=== PATIENT | female | born 1990 | race African-American/Black ===

== ENCOUNTER 2016-08-11 13:33 | Emergency (ER) | payer SELFPAY ==
[2016-08-11] MEDS ORDERED: Albuterol Sulfate 2.5 mg/3 ml Neb ONE ×2 (14:17→15:17)
[2016-08-11] MEDS ORDERED: Ipratropium Bromide 2.5 ml Neb ONE (14:17)
[2016-08-11] MEDS ORDERED: Dexamethasone 20 MG/5 ML VIAL ONE (14:22)
== END 2016-08-11 15:50 | disposition home or self-care (01) ==
LOC: NAV ERS 13:33
DX: J45.909 Unspecified asthma, uncomplicated (principal); Z79.899 Other long term (current) drug therapy
CPT/HCPCS: 94640; 96372; J1100; J7611; J7644

== ENCOUNTER 2018-12-03 13:26 | Emergency (ER) | payer SELFPAY | END 2018-12-03 14:35 | disposition home or self-care (01) | LOC: NAV ERS 13:26 | DX: J06.9 Acute upper respiratory infection, unspecified (principal); F17.210 Nicotine dependence, cigarettes, uncomplicated; J45.909 Unspecified asthma, uncomplicated | CPT/HCPCS: 99281 ==

== ENCOUNTER 2020-06-28 06:25 | Emergency (ER) | payer SELFPAY ==
[2020-06-28] MEDS ORDERED: Ventolin HFA Inhaler 60 PUFF INHALER ONE (07:14)
== END 2020-06-28 07:14 | disposition home or self-care (01) ==
LOC: NAV ERS 06:25
DX: J45.901 Unspecified asthma with (acute) exacerbation (principal); F17.210 Nicotine dependence, cigarettes, uncomplicated
CPT/HCPCS: 99284

== ENCOUNTER 2024-08-09 16:26 | Emergency (ER) | payer SELFPAY | END 2024-08-09 17:22 | disposition home or self-care (01) | LOC: NAV ERS 16:26 | DX: Z02.89 Encounter for other administrative examinations (principal); F17.210 Nicotine dependence, cigarettes, uncomplicated | CPT/HCPCS: 99282 ==